=== PATIENT | female | born 1955 | race African-American/Black ===

== ENCOUNTER 2017-03-09 21:56 | Inpatient (IN) | payer BC, OTHER ==
[~2017-03-09] VITALS: Ht 175.3 cm; Wt 99.9 kg
--- NOTE | ~2017-03-09 | EKG ---
[address] [address] ELECTROCARDIOGRAM REPORT Name: TY SNOWDEN Room #: 214-P ADM IN M.R.#: [id number] Admission: 03/09/17 Attend Phys: Cory Mcbride MD Discharge: Date of : 59 Report #: [id number] THIS REPORT FOR: //name// [facility] ED Test Date: 2017-03-09 Test Time: 21:58:46 Pat Name: TY SNOWDEN Department: Room: 214 Gender: F All Round Butcher: MAITE : 1955 Requested By: Mali George Order Number: [id number] MD: Eh Up Measurements Intervals [place] Rate: 59 P: 72 LA: QRS: 70 QRSD: 96 T: 110 QT: 411 QTc: 408 Interpretive Statements Inferoposterior infarct, acute (RCA) Sinus rhythm with complete heart block Probable RV involvement, suggest recording right precordial leads No previous ECG available for comparison Electronically Signed On 03-11-2017 9:52:17 CDT by Eh Up [email or web address] <ELECTRONICALLY SIGNED> By: Eh Up MD 03/11/17 0952 2158 Eh Up MD /ZAY
--- NOTE | ~2017-03-09 | EKG ---
[address] [address] ELECTROCARDIOGRAM REPORT Name: TY SNOWDEN Room #: 214-P ADM IN M.R.#: [id number] Admission: 03/09/17 Attend Phys: Cory Mcbride MD Discharge: Date of : 59 Report #: [id number] THIS REPORT FOR: //name// [facility] Test Date: 2017-03-10 Test Time: 07:18:25 Pat Name: TY SNOWDEN Department: Room: 214 P Gender: F Maid Supervisor: luis : 1955 Requested By: Cory Mcbride Order Number: [id number] MD: Measurements Intervals [place] Rate: 75 P: 55 KS: 155 QRS: 33 QRSD: 99 T: 22 QT: 399 QTc: 446 Interpretive Statements Sinus rhythm Inferior infarct, old Baseline wander in lead(s) V5 No previous ECG available for comparison [email or web address] By: 7 7 Bud Farrell MD /ZAY
--- NOTE | ~2017-03-09 | CATHLAB ---
Former[facility] [address] [place] [address] INVASIVE PROCEDURE REPORT Name: TY SNOWDEN Room #: 214-P ADM IN M.R.#: [id number] Admission: 03/09/17 Attend Phys: Cory Mcbride MD Discharge: Date of : 59 Date of Service: 03/09/17 2329 Report #: [id number] THIS REPORT FOR: //name// CC: MARCEL physician/PCP Cory Mcbride DATE OF SERVICE: 03/09/2017 INDICATIONS: Acute inferior wall myocardial infarction. Risks, benefits and alternatives of cardiac catheterization were explained to the patient. Verbal consent was obtained. The right groin area was prepped and draped in a sterile manner. Lidocaine was given subcutaneously. A 6-Montserratian sheath was inserted into the right femoral artery via modified Seldinger technique. CORONARY ANATOMY: Left main is a large caliber vessel with no flow-limiting lesions. The LAD appears to have an ectatic region in the proximal segment. At the bifurcation of the first diagonal artery, there is mild to moderate disease in the LAD, 30-40%. The remaining segments of the LAD have no flow-limiting lesions. The left circumflex artery gives off 1 obtuse marginal artery. There is mild disease in the proximal segment of the obtuse marginal artery, 30%. The RCA is a dominant vessel with a total occlusion within the mid segment. The RCA is tortuous as it travels down the AV groove. The distal RCA gives off a PDA and posterolateral branches. A left ventriculogram was performed at the end of the procedure, revealing normal LV systolic function, ejection fraction of 60%. There is subtle hypokinesis of the inferior wall. The LVEDP is approximately 28 mmHg. There is no gradient across the outflow tract. ANGIOPLASTY REPORT: 100% mid RCA occlusion. The patient was given IV Cangrelor and Angiomax. A 6-Montserratian system was used. I was able to pass a Luge wire through the obstruction and placed it in the distal RCA. The mid segment lesion was predilated with a 2.5 mm balloon. This restored blood flow into the distal vessels. There was still a severe stenotic lesion. I elected to place a 3.0 x 18 mm Resolute (drug-eluting stent), inflated up to 16 atmospheres. This stent was postdilated with a 3.25 mm noncompliant balloon, inflated up to 18 atmospheres. Final injections revealed SEAN 3 blood flow with a 0% residual lesion. [facility] [address] [place] [address] INVASIVE PROCEDURE REPORT Name: TY SNOWDEN Room #: 214-P [facility] IN [facility].#: [id number] Admission: 03/09/17 Attend Phys: Cory Mcbride MD Discharge: Date of : 59 Date of Service: 03/09/17 2329 Report #: [id number] IMPRESSION: 1. Successful insertion of a drug-eluting stent into the total occlusion within the mid right coronary artery segment. 2. Mild to moderate disease in the proximal LAD and proximal obtuse marginal artery. 3. Normal left ventricular systolic function with subtle hypokinesis of the inferior wall. 4. Recommend dual antiplatelet therapy. <ELECTRONICALLY SIGNED> By: Cory Mcbride MD 03/11/17 0806 2329 1200 Cory Mcbride MD /nt
--- NOTE | ~2017-03-09 | H ---
[facility] [address] [place] [address] HISTORY AND PHYSICAL Name: TY SNOWDEN Room #: 214-P ADM IN M.R.#: [id number] Admission: 03/09/17 Attend Phys: Cory Mcbride MD Discharge: Date of : 59 Report #: [id number] THIS REPORT FOR: //name// CC: MARCEL physician/PCP Cory Mcbride DATE OF SERVICE: 03/09/2017 INDICATION: Chest pain. HISTORY OF PRESENT ILLNESS: This is a pleasant 61-year-old female with a prior history of CAD, presenting with acute onset of chest pains. Shortly after eating dinner, the patient was walking outside when she developed epigastric discomfort. It spread up into the chest area and was associated with shortness of breath and a flushing sensation. They immediately called 911. The ECG on the field revealed an acute inferior wall myocardial infarction. In the ER, she had transient heart block, probable second degree AV block, Mobitz type 1. There is no history of fever, chills, or nausea. PAST MEDICAL HISTORY: Non-ST elevation MS 3 years ago at [facility], with medical therapy and stress testing. Hypertension, hypercholesterolemia, and trigeminal neuralgia. ALLERGIES: None. MEDICATIONS: Include Coreg 6.25 mg twice a day, Lipitor 40 mg daily, aspirin once a day, amlodipine 10 mg daily and clonazepam. SOCIAL HISTORY: Smokes 1 pack of cigarettes per day. FAMILY HISTORY: Negative for premature CAD. REVIEW OF SYSTEMS: A full 10-point review of systems performed. Only the pertinent positives and negatives are described in the HPI. PHYSICAL EXAMINATION: VITAL SIGNS: Blood pressure is 110/70, heart rate is 80 beats per minute. GENERAL APPEARANCE: A mildly overweight female in no acute respiratory distress. HEAD AND EYES: Normocephalic. Sclerae are anicteric. ENT: Oral mucosa moist. NECK: Supple. LUNGS: Clear to auscultation. CARDIAC: Regular rate and rhythm, S1, S2 positive. ABDOMEN: Soft, nontender. EXTREMITIES: No major joint deformities. [facility] [email or web address] [address] HISTORY AND PHYSICAL Name: TY SNOWDEN Room #: 214-[facility] IN M.R.#: [id number] Admission: 03/09/17 Attend Phys: Cory Mcbride MD Discharge: Date of : 59 Report #: [id number] ECG reveals sinus rhythm with high grade AV block, possibly second degree with Mobitz 1. ST elevations in the inferior leads with reciprocal changes in I, aVL, consistent with an acute inferior wall myocardial infarction. ASSESSMENT AND PLAN: 1. Acute inferior wall myocardial infarction. The patient will be taken emergently to the cardiac wheelabrator operator. Risks and benefits discussed. 2. Heart block, probable second degree AV block with Mobitz type 1. Resolved and presently in sinus rhythm. 3. Hypertension, continue with medications. 4. Hypercholesterolemia, continue with statin therapy. 5. Trigeminal neuralgia. 6. Tobacco use, complete smoking cessation is recommended. <ELECTRONICALLY SIGNED> By: Cory Mcbride MD 03/10/17 0744 2228 0200 Cory Mcbride MD /nt
--- NOTE | ~2017-03-09 | EKG ---
[address] [address] ELECTROCARDIOGRAM REPORT Name: TY SNOWDEN Room #: 214-P ADM IN M.R.#: [id number] Admission: 03/09/17 Attend Phys: Cory Mcbride MD Discharge: Date of : 59 Report #: [id number] THIS REPORT FOR: //name// [facility] Test Date: 2017-03-11 Test Time: 06:54:53 Pat Name: TY SNOWDEN Department: Room: 214 P Gender: F Compliance Administrator: luis : 1955 Requested By: Cory Mcbride Order Number: [id number] MD: Measurements Intervals [place] Rate: 75 P: 65 GA: 137 QRS: -8 QRSD: 89 T: -63 QT: 470 QTc: 525 Interpretive Statements Sinus rhythm Inferior infarct, recent Prolonged QT interval No previous ECG available for comparison [email or web address] By: 0654 Bud Farrell MD /EPI
--- NOTE | ~2017-03-09 | D ---
[facility] [address] [place] [address] DISCHARGE SUMMARY Name: TY SNOWDEN Room #: 214-P [facility] IN M.R.#: [id number] Admission: 03/09/17 Attend Phys: Cory Mcbride MD Discharge: 03/11/17 Date of : 59 Report #: [id number] THIS REPORT FOR: //name// CC: MARCEL physician/PCP Cory Mcbride DATE OF SERVICE: 03/11/2017 FINAL DIAGNOSES: 1. Acute inferior wall myocardial infarction, status post coronary intervention. 2. Hypertension. 3. Hypercholesterolemia. 4. Chronic tobacco use. 5. Trigeminal neuralgia. HOSPITAL COURSE: The patient presented with an acute inferior wall UT. Please see the original H and P for full details. She was taken emergently to the cardiac catheterization lab. The patient was found to have 100% occlusion of the mid LAD. Percutaneous angioplasty was performed with placement of a drug-eluting stent. 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 The patient was transferred to the CCU. She has been stable with ambulation on the nursing floor. The patient is tolerating dual antiplatelet therapy. We had a long discussion regarding the importance of complete smoking cessation. She is stable for discharge and will follow up in the office in a few weeks. FINAL DISPOSITION: Aspirin 325 daily, Lipitor 40 mg daily, carbamazepine as instructed, Coreg 12.5 mg daily, losartan 50 mg daily and Effient 10 mg daily. <ELECTRONICALLY SIGNED> By: Cory Mcbride MD 03/12/17 0838 0851 1048 Cory Mcbride MD /neri
[2017-03-09 21:59] VITALS: BP 112/72
[2017-03-09] MEDS ORDERED: LIPITOR40 MG PO (22:12)
[2017-03-09] MEDS ORDERED: CARVEDILOL12.5 MG PO (22:12)
[2017-03-09] MEDS ORDERED: NORVASC5 MG PO (22:12)
[2017-03-09 22:13] LABS: HEMATOCRIT 42.6 % (37.0-47.0); HEMOGLOBIN 14.4 gm/dL (12.0-15.0); MCHC 33.9 g/dL (28.0-37.0); MCV 91.7 fL (80.0-100.0); PLATELET COUNT 254 thou/uL (150-400); RBC 4.65 mil/uL (4.20-5.00); RDW 15.5 % (10.5-14.5); WBC 6.7 thou/uL (4.0-11.0)
[2017-03-09] MEDS ORDERED: ASPIR 8181 MG PO (22:13)
[2017-03-09 22:17] LABS: ANION GAP 9 mmol/L (7-16); BUN 12 mg/dL (7-18); CALCIUM 9.8 mg/dL (8.5-10.1); CHLORIDE 107 mmol/L (98-107); CO2 26 mmol/L (21-32); GLUCOSE 116 mg/dL (74-106); SODIUM 142 mmol/L (136-145)
[2017-03-09 22:18] LABS: POTASSIUM 3.9 mmol/L (3.5-5.1)
[2017-03-09 22:25] LABS: TROPONIN-I < 0.04 ng/mL (<0.04-0.07)
[2017-03-09 22:31] LABS: INR 1.1; MANUAL DIFF YES; PROTIME 11.1 Seconds (9.3-11.4)
[2017-03-09 22:32] LABS: ABSOLUTE NEUTROPHILS 1.9 thou/uL (1.4-8.2); ANISOCYTOSIS 1+; TOTAL CELL COUNT 100
[2017-03-09 22:33] LABS: POIKILOCYTOSIS SLIGHT
[2017-03-09 23:53] VITALS: BP 135/82
[2017-03-10] VITALS (17 sets, daily range): BP systolic 113–150; BP diastolic 76–91
[2017-03-10] MEDS ORDERED: TEGRETOL200 MG PO (01:32)
[2017-03-10] MEDS ORDERED: VITAMIN D2000 UNIT PO (01:34)
[2017-03-10] MEDS ORDERED: NORVASC10 MG PO (01:34)
[2017-03-10 04:06] LABS: HEMATOCRIT 43.5 % (37.0-47.0); HEMOGLOBIN 14.6 gm/dL (12.0-15.0); MCH 30.9 pg (26.0-34.0); MCHC 33.6 g/dL (28.0-37.0); MCV 91.9 fL (80.0-100.0); RBC 4.73 mil/uL (4.20-5.00); RDW 15.8 % (10.5-14.5); WBC 7.9 thou/uL (4.0-11.0)
[2017-03-10 04:18] LABS: ANION GAP 9 mmol/L (7-16); BUN 13 mg/dL (7-18); CALCIUM 9.6 mg/dL (8.5-10.1); CHLORIDE 107 mmol/L (98-107); CHOLESTEROL 228 mg/dL (<200); CO2 25 mmol/L (21-32); GLUCOSE 125 mg/dL (74-106); HDL CHOLESTEROL 41 mg/dL (>40); LDL CHOLESTEROL 147 mg/dL (<100); SODIUM 141 mmol/L (136-145); TC:HDL 5.6 Ratio (Not establshd); TRIGLYCERIDE 204 mg/dL (<150); VLDL 41 mg/dL (<40)
[2017-03-10 04:20] LABS: SERUM ASSESSMENT Clear
[2017-03-10 04:22] LABS: TROPONIN-I 53.67 ng/mL (<0.04-0.07)
[2017-03-11 03:01] LABS: HEMATOCRIT 41.2 % (37.0-47.0); HEMOGLOBIN 13.7 gm/dL (12.0-15.0); MCH 30.3 pg (26.0-34.0); MCHC 33.2 g/dL (28.0-37.0); MCV 91.4 fL (80.0-100.0); RBC 4.5 mil/uL (4.20-5.00); RDW 15.1 % (10.5-14.5); WBC 7.1 thou/uL (4.0-11.0)
[2017-03-11 03:20] LABS: CALCIUM 9.5 mg/dL (8.5-10.1); CREATININE 0.8 mg/dL (0.6-1.0); POTASSIUM 3.5 mmol/L (3.5-5.1)
[2017-03-11 03:28] LABS: TROPONIN-I 25.08 ng/mL (<0.04-0.07)
[2017-03-11 04:51] LABS: POC POTASSIUM 3.8 mmol/L (3.5-5.1)
[2017-03-11 05:51] VITALS: BP 114/77
[2017-03-11 07:19] VITALS: BP 118/84
[2017-03-11] MEDS ORDERED: COZAAR 50 MG TA50 M1 PO (08:26)
[2017-03-11] MEDS ORDERED: EFFIENT10 MG PO (08:26)
[2017-03-11] MEDS ORDERED: ASPIRIN EC325 MG PO (10:09)
[2017-03-11 10:11] VITALS: BP 119/84
[2017-03-11 10:30] VITALS: BP 119/84
== END 2017-03-11 10:40 | disposition home or self-care (01) | DRG 247 ==
LOC: ER 21:56 → EROBS 22:20 → 2N 22:20 → TBA 22:23 → 2N 22:28
PROVIDERS: Emergency Medicine; Internal Medicine Cardiovascular Disease
PROC: B2111ZZ Fluoroscopy of Multiple Coronary Arteries using Low Osmolar Contrast (ICD-10-PCS; principal; 2017-03-09)
PROC: B2151ZZ Fluoroscopy of Left Heart using Low Osmolar Contrast (ICD-10-PCS; principal; 2017-03-09)
PROC: 027034Z Dilation of Coronary Artery, One Artery with Drug-eluting Intraluminal Device, Percutaneous Approach (ICD-10-PCS; principal; 2017-03-09)
PROC: 4A023N7 Measurement of Cardiac Sampling and Pressure, Left Heart, Percutaneous Approach (ICD-10-PCS; principal; 2017-03-09)
DX: I21.19 ST elevation (STEMI) myocardial infarction involving other coronary artery of inferior wall (principal); I44.1 Atrioventricular block, second degree; I25.10 Atherosclerotic heart disease of native coronary artery without angina pectoris; I10 Essential (primary) hypertension; E78.00 Pure hypercholesterolemia, unspecified; G50.0 Trigeminal neuralgia; F17.210 Nicotine dependence, cigarettes, uncomplicated; Z71.6 Tobacco abuse counseling; I25.2 Old myocardial infarction
CPT/HCPCS: 10081

== ENCOUNTER → 2017-07-02 | Outpatient (CLI) | payer OTHER, BC ==
[~2017-07-02] MED LIST: ASPIR 8181 MG PO; ASPIRIN EC325 MG PO; CARVEDILOL12.5 MG PO; COZAAR 50 MG TA50 M1 PO; EFFIENT10 MG PO; LIPITOR40 MG PO; NORVASC10 MG PO; NORVASC5 MG PO; TEGRETOL200 MG PO; VITAMIN D2000 UNIT PO
--- NOTE | ~2017-07-02 | 2DMMODE ---
[facility] [address] [place] [address] 2 D/M-MODE ECHOCARDIOGRAM Name: TY SNOWDEN Room #: REG [facility]#: [id number] Admission: 07/02/17 Attend Phys: oCry Mcbride MD Discharge: Date of : 59 Date of Service: 07/02/17 1045 Report #: [id number] THIS REPORT FOR: //name// APPROVED REPORT Study performed: 07/02/2017 09:16:54 EXAM: Comprehensive 2D, Doppler, and color-flow Echocardiogram Patient Location: Out-Patient Room #: Echo lab Status: routine BSA: 2.12 HR: 65 bpm BP: 118/84 mmHg Other Information Study Quality: Good Indications CAD Hypertension/HDD HLP. 2D Dimensions RVDd: 32.84 mm LVEF(%): 64.99 (>50%) IVSd: 11.28 (7-11mm) LVOT Diam: 18.42 (18-24mm) LVDd: 40.93 mm PWd: 11.18 (7-11mm) Ascending Ao: 26.52 (22-36mm) LVDs: 26.53 (25-40mm) Aortic Root: 26.81 mm IVC: 16.00 mm Guevara's LVEF: 64.99 % Volumes Left Atrial Volume (Systole) Single Plane 4CH: 43.62 mL Single Plane 2CH: 56.03 mL LA ESV Index: 25.00 mL/m2 Aortic Valve AoV Peak South.: 1.12 m/s AO Peak Gr.: 4.98 mmHg LVOT Max P.54 mmHg LVOT Max V: 0.94 m/s PÉREZ Vmax: 2.25 cm2 Mitral Valve E/A Ratio: 1.3 [facility] [place] [place] [address] 2 D/M-MODE ECHOCARDIOGRAM Name: JEANNETTE SNOWDENYCE Room #: REG [facility]#: [id number] Admission: 07/02/17 Attend Phys: Cory Mcbride MD Discharge: Date of : 59 Date of Service: 07/02/17 1045 Report #: [id number] MV Decel. Time: 150.05 ms MV E Max South.: 0.68 m/s MV A South.: 0.52 m/s MV PHT: 43.51 ms IVRT: 87.66 ms Pulmonary Valve PV Peak South.: 0.72 m/s PV Peak Gr.: 2.05 mmHg NJ End Vmax: 0.98 m/s Pulmonary Vein P Vein S: 0.45 m/s P Vein A: 0.28 m/s P Vein D: 0.37 m/s P Vein A Dur.: 129.2 msec P Vein S/D Ratio: 1.22 Tricuspid Valve TR Peak South.: 2.93 m/s RAP Estimate: 5.00 mmHg TR Peak Gr.: 34.31 mmHg PA Pressure: 39.00 mmHg Left Ventricle The left ventricle is normal size. There is normal LV segmental wall motion. There is normal left ventricular wall thickness. The left ventricular systolic function is normal. The left ventricular ejection fraction is within the normal range. LVEF is 60-65%. Grade I - abnormal relaxation pattern. Right Ventricle The right ventricle is normal size. The right ventricular systolic function is normal. Atria The left atrium size is normal. The right atrium size is normal. Aortic Valve The aortic valve is normal in structure. No aortic regurgitation is present. There is no aortic valvular stenosis. Mitral Valve The mitral valve is normal in structure. There is no mitral valve regurgitation noted. No evidence of mitral valve stenosis. Tricuspid Valve The tricuspid valve is normal in structure. There is mild tricuspid regurgitation. The right atrial pressure is estimated at 5 mmHg. [facility] [address] [place] [address] 2 D/M-MODE ECHOCARDIOGRAM Name: TY SNOWDEN Room #: REG [facility]#: [id number] Admission: 07/02/17 Attend Phys: Cory Mcbride MD Discharge: Date of : 59 Date of Service: 07/02/17 1045 Report #: [id number] There is mild pulmonary hypertension. With an estimated PAP of 39 mmHg. Pulmonic Valve The pulmonary valve is normal in structure. Trace pulmonic regurgitation. Great Vessels The aortic root is normal in size. IVC is normal in size and collapses >50% with inspiration. Pericardium There is no pericardial effusion. <Conclusion> The left ventricle is normal size. The left ventricular systolic function is normal. The left atrium size is normal. The aortic valve is normal in structure. The mitral valve is normal in structure. There is mild tricuspid regurgitation. The right atrial pressure is estimated at 5 mmHg. There is mild pulmonary hypertension. With an estimated PAP of 39 mmHg. <ELECTRONICALLY SIGNED> By: Cory Mcbride MD 07/02/17 1045 1045 1045 Cory Mcbride MD /INF
== END ==
LOC: CV 09:11
DX: I25.10 Atherosclerotic heart disease of native coronary artery without angina pectoris (principal); I27.2 Other secondary pulmonary hypertension; I07.1 Rheumatic tricuspid insufficiency

== ENCOUNTER → 2018-11-04 | Outpatient (CLI) | payer OTHER | LOC: NUC 12:07 | DX: E28.39 Other primary ovarian failure (principal); M79.89 Other specified soft tissue disorders; M79.605 Pain in left leg; Z87.891 Personal history of nicotine dependence ==

== ENCOUNTER → 2018-11-08 | Outpatient (CLI) | payer OTHER ==
--- NOTE | 2018-11-10 13:08 | PATH ---
[facility] [address] [place] [address] PATHOLOGY RPT PROCEDURE Name: EVELYN SNOWDEN Room #: REG SANTI Will.#: [id number] Admission: 11/08/18 Date of : 59 Discharge: Report #: [id number] Path Case #: [id number] [facility] Accession Number: [id number] . 01 Material submitted: . PART A: POLYP AT TRANSVERSE COLON PART B: POLYP AT CECUM X2 . 01 Clinical history: . Pre-op diagnosis: Screening Post-op diagnosis: Colon polyps . 02 Diagnosis: A. Polyp, transverse colon, endoscopic biopsy: - Tubular adenoma associated with hyperplastic changes in the background. - Negative for high-grade dysplasia. . B. Polyp x2, cecum, endoscopic biopsy: - All fragments showing tubular adenoma. - Negative for high-grade dysplasia. (IUV:pit 11/09/2018) QTP/11/09/2018 . 02 Electronically signed: . Edith Vidal MD, Pathologist NPI- [id number] . 01 Gross description: . A. The specimen is received in formalin, labeled "Evelyn Snowden, polyp at transverse colon". Received are three segments of pale tam soft tissue ranging in size from 0.4 to 0.5 cm in maximum dimensions. The specimen is submitted entirely in cassette A1. . B. The specimen is received in formalin, labeled "Evelyn Snowden, polyp at cecum x2". Received are five segments of pale tam soft tissue ranging in size from 0.2 to 0.5 cm in maximum dimensions. The specimen is submitted entirely in cassette B1. (CAA; 11/08/2018) QAC/QAC . 02 Pathologist provided ICD-10: D12.3, D12.0 . 02 CPT . 900492, 151973 Specimen Comment: A courtesy copy of this report has been sent to Specimen Comment: [phone], . [place] [address] PATHOLOGY RPT PROCEDURE Name: EVELYN SNOWDEN KATERINE Room #: REG SANTI Jmienez#: [id number] Admission: 11/08/18 Date of : 59 Discharge: Report #: [id number] Path Case #: [id number] Specimen Comment: Report sent to / DR SHINE Performed at: [address], [place], [place] [id number] MD Mao Muñoz MD Phone: [phone] Performed at: [address] [id number] MD Edith Vidal MD Phone: [phone]
== END | disposition home or self-care (01) ==
LOC: GI 07:05
DX: Z12.11 Encounter for screening for malignant neoplasm of colon (principal); D12.3 Benign neoplasm of transverse colon; D12.0 Benign neoplasm of cecum; I10 Essential (primary) hypertension; I25.10 Atherosclerotic heart disease of native coronary artery without angina pectoris; I25.2 Old myocardial infarction; E78.00 Pure hypercholesterolemia, unspecified; F17.210 Nicotine dependence, cigarettes, uncomplicated; E66.09 Other obesity due to excess calories; G50.0 Trigeminal neuralgia; Z98.890 Other specified postprocedural states; Z79.899 Other long term (current) drug therapy; Z95.5 Presence of coronary angioplasty implant and graft; Z79.82 Long term (current) use of aspirin
CPT/HCPCS: 62110; 62900

== ENCOUNTER → 2018-11-15 | Outpatient (CLI) | payer OTHER | LOC: MRI 11:32 | DX: G50.0 Trigeminal neuralgia (principal) ==

== ENCOUNTER → 2020-01-04 | Outpatient (CLI) | payer OTHER | LOC: NUC 12-22 15:02 → SJCVCIMAG 07:52 | DX: I25.10 Atherosclerotic heart disease of native coronary artery without angina pectoris (principal); I25.2 Old myocardial infarction; F17.200 Nicotine dependence, unspecified, uncomplicated; Z98.61 Coronary angioplasty status; Z79.899 Other long term (current) drug therapy ==

== ENCOUNTER → 2021-07-01 | Outpatient (CLI) | payer OTHER ==
[2021-07-01 12:36] LABS: ABSOLUTE NEUTROPHILS 2.4 thou/uL (1.4-8.2); BASOPHILS 1.4 % (0.0-2.0); EOSINOPHILS 4.6 % (0.0-3.0); HEMATOCRIT 43.8 % (37.0-47.0); HEMOGLOBIN 14.7 gm/dL (12.0-15.0); LYMPHOCYTES 48.8 % (24.0-44.0); MCH 31.9 pg (26.0-34.0); MCHC 33.5 g/dL (28.0-37.0); MCV 95.2 fL (80.0-100.0); MONOCYTES 6.9 % (1.0-8.0); PLATELET COUNT 229 thou/uL (150-400); POLYS 38.3 % (36.0-66.0); RDW 15.5 % (10.5-14.5); WBC 6.3 thou/uL (4.0-11.0)
[2021-07-01 12:39] LABS: URINE BILIRUBIN NEGATIVE (Negative); URINE BLOOD NEGATIVE (Negative); URINE CLARITY CLEAR; URINE COLOR YELLOW; URINE GLUCOSE-RANDOM* NEGATIVE (Negative); URINE KETONES NEGATIVE (Negative); URINE LEUKOCYTES NEGATIVE (Negative); URINE NITRITE NEGATIVE (Negative); URINE PROTEIN (DIPSTICK) NEGATIVE (Negative)
[2021-07-01 13:09] LABS: ALBUMIN 3.2 g/dL (3.4-5.0); ANION GAP 10 mmol/L (7-16); BUN 15 mg/dL (7-18); CALCIUM 9.2 mg/dL (8.5-10.1); CHLORIDE 107 mmol/L (98-107); CHOLESTEROL 152 mg/dL (<200); CO2 26 mmol/L (21-32); CREATININE 1.1 mg/dL (0.6-1.0); GLUCOSE 102 mg/dL (74-106); HDL CHOLESTEROL 39 mg/dL (>40); LDL CHOLESTEROL 87 mg/dL (<100); POTASSIUM 3.9 mmol/L (3.5-5.1); SGOT 18 U/L (15-37); SGPT 25 U/L (30-65); SODIUM 143 mmol/L (136-145); TC:HDL 3.9 Ratio (Not establshd); TOTAL BILIRUBIN 0.2 mg/dL (0.2-1.0); TOTAL PROTEIN 7.4 g/dL (6.4-8.2); TRIGLYCERIDE 130 mg/dL (<150); VLDL 26 mg/dL (<40)
== END ==
LOC: LAB 11:58
PROVIDERS: ATTEND Nurse Practitioner
DX: Z01.419 Encounter for gynecological examination (general) (routine) without abnormal findings (principal); Z00.00 Encounter for general adult medical examination without abnormal findings

== ENCOUNTER → 2021-08-15 | Outpatient (CLI) | payer OTHER | LOC: SJCVCIMAG 08-08 11:30 | PROVIDERS: ATTEND Internal Medicine Cardiovascular Disease | DX: I35.8 Other nonrheumatic aortic valve disorders (principal); I25.10 Atherosclerotic heart disease of native coronary artery without angina pectoris; I10 Essential (primary) hypertension ==

== ENCOUNTER → 2021-11-21 | Outpatient (CLI) | payer OTHER ==
[~2021-11-21] MED LIST changes: +CRESTOR40 MG PO; +NEURONTIN100 MG PO; +ROSUVASTATIN CA20 MG PO; +TRIAMTERENE/HCT1 CA1 PO
== END ==
LOC: LAB 05:30
PROVIDERS: ATTEND Student in an Organized Health Care Education/Training Program
DX: Z01.812 Encounter for preprocedural laboratory examination (principal); Z20.822 Contact with and (suspected) exposure to COVID-19

== ENCOUNTER → 2021-11-25 | Outpatient (CLI) | payer OTHER ==
[~2021-11-25] VITALS: Ht 175.3 cm; Wt 95.3 kg
--- NOTE | 2021-11-27 15:07 | PATH ---
[facility] [address] [place] [address] PATHOLOGY RPT PROCEDURE Name: EVELYN SNOWDEN Room #: REG [facility] M.Marge.#: [id number] Admission: 11/25/21 Date of : 59 Discharge: Report #: [id number] Path Case #: [id number] [facility] Accession Number: [id number] . 01 Material submitted: . body - SIGMOID COLON POLYP X2. Modifiers: X2 . 01 Clinical history: . COLONOSCOPY, HX OF POLYPS . 02 Diagnosis: Large bowel "sigmoid colon polyp x2", biopsy: - Hyperplastic polyp; negative for dysplasia and malignancy. . (MLK:mml; 11/26/2021) [facility] 11/26/2021 1559 Local . 02 Electronically signed: . Vipul Loving MD, Pathologist NPI- [id number] . 01 Gross description: . The specimen is received in formalin, labeled "Evelyn Snowden, sigmoid colon polyp x2". Received are 2 segments of pale tam tissue measuring 0.3 and 0.4 cm in maximum dimensions. The specimen is entirely submitted in cassette A1. ([facility]; 11/25/2021) NRI/NRI 11/25/20212027 Local . 02 Pathologist provided ICD-10: K63.5 . 02 CPT . 014300 Specimen Comment: A courtesy copy of this report has been sent to [phone] Specimen Comment: [phone] Specimen Comment: Report sent to / DR ETIENNE Performed at: 01 [facility] [address] [id number] MD Ge Christensen MD Phone: [phone] Performed at: 02 [facility] [address] [id number] MD Duncan Block MD Phone: [phone]
== END | disposition home or self-care (01) ==
LOC: GI 08:50
PROVIDERS: ATTEND Internal Medicine Gastroenterology
DX: Z12.11 Encounter for screening for malignant neoplasm of colon (principal); Z86.010 Personal history of colon polyps; K63.5 Polyp of colon; K64.8 Other hemorrhoids; I10 Essential (primary) hypertension; E78.00 Pure hypercholesterolemia, unspecified; I25.2 Old myocardial infarction; I25.10 Atherosclerotic heart disease of native coronary artery without angina pectoris; F17.210 Nicotine dependence, cigarettes, uncomplicated; Z98.890 Other specified postprocedural states; Z79.899 Other long term (current) drug therapy; Z79.82 Long term (current) use of aspirin
CPT/HCPCS: 62110; 62900